=== PATIENT | female | born 1985 ===

== ENCOUNTER 2022-04-03 18:12 | Outpatient (NON) | payer MEDICARE, SELFPAY | END 2022-04-03 18:13 | disposition home or self-care (01) | LOC: CHSLAB 18:19 | PROVIDERS: Visit Provider Urology | DX: N39.0 Urinary tract infection, site not specified (principal) | CPT/HCPCS: 87086 ==

== ENCOUNTER 2022-08-29 12:47 | Outpatient (NON) | payer MEDICARE, SELFPAY ==
[2022-08-29 13:01] LABS: Appearance Urine Clear (Clear); Bilirubin Urine Negative (Negative); Blood Urine Negative (Negative); Color Urine Light Yellow (Yellow); Glucose Urine UA Negative (Negative); Ketones Urine Negative (Negative); Leukocyte Esterase Ur Negative (Negative); Nitrate Urine Negative (Negative); Protein Urine Negative (Negative); Specific Grav Ur 1.025 (1.010-1.020); Urobilinogen Urine 0.2 mg/dL (0.2-1.0)
[2022-08-29 13:04] LABS: Add Urine Microscopic? NO
== END 2022-08-29 12:48 | disposition home or self-care (01) ==
LOC: CHSLAB 12:49
PROVIDERS: Visit Provider Urology
DX: N39.0 Urinary tract infection, site not specified (principal)
CPT/HCPCS: 81003; 87086